=== PATIENT | male | born 1955 | race Caucasian/White ===

== ENCOUNTER 2022-08-14 18:17 | Inpatient (IN) | payer MEDICARE ==
[~2022-08-14] VITALS: Ht 172.7 cm; Wt 78.1 kg
[2022-08-14] MEDS ORDERED: INSULIN (19:15)
[2022-08-15 00:45] LABS: BASOPHILS % 0.9 % (0.0-2.0); EOSINOPHILS % 2.2 % (0.0-5.0); HEMATOCRIT. 42.2 % (42.0-52.0); HEMOGLOBIN. 14.6 g/dL (14.0-18.0); LYMPHOCYTES % 32.4 % (20.0-50.0); MEAN CORPUSCULAR HEMOGLOBIN 32.6 pg (28.0-32.0); MEAN CORPUSCULAR VOLUME 94.1 fL (80.0-94.0); MONOCYTES % 6.5 % (2.0-8.0); PLATELET 215 x1000/uL (130-400); RED BLOOD CELL COUNT 4.49 mill/uL (4.7-6.1); RED CELL DISTRIBUTION WIDTH 13.5 % (11.6-14.6)
[2022-08-15 01:51] LABS: CHLORIDE 106 mEq/L (98-107)
[2022-08-15] MEDS ORDERED: INSU10VI2 SUBCUT (05:57)
[2022-08-15] MEDS ORDERED: DEXTROSE 50% WATER 50ML SYRINGE IV PRN (06:15)
[2022-08-15 06:19] VITALS: BP 170/62
[2022-08-15] MEDS: BLOOD SUGAR DIAGNOSTIC STRIP TEST SCH ×4 (06:52→20:36)
[2022-08-15] MEDS ORDERED: DEXT 5% WATER + KCL 20MEQ/L 1,000 ML IV SCH ×2 (07:30→15:00)
[2022-08-15] MEDS: INSULIN LISPRO 100 UNITS/ML SUBCUT SCH ×4 (07:40→20:44)
[2022-08-15 08:00] VITALS: BP 141/61
[2022-08-15] MEDS: HEPARIN 5000 UNITS/ML VIAL SUBCUT SCH ×2 (09:27→20:43)
[2022-08-15 11:49] LABS: EOSINOPHILS % 1.4 % (0.0-5.0); HEMATOCRIT. 42.3 % (42.0-52.0); HEMOGLOBIN. 14.4 g/dL (14.0-18.0); LYMPHOCYTES % 23.2 % (20.0-50.0); MEAN CORPUSCULAR HEMOGLOBIN 32.1 pg (28.0-32.0); MEAN CORPUSCULAR VOLUME 94.5 fL (80.0-94.0); MEAN PLATELET VOLUME 8.1 fl (7.4-10.4); NEUTROPHILS % 68.4 % (40.0-76.0); PLATELET 215 x1000/uL (130-400); RED BLOOD CELL COUNT 4.47 mill/uL (4.7-6.1); RED CELL DISTRIBUTION WIDTH 13.7 % (11.6-14.6)
[2022-08-15 12:00] VITALS: BP 123/57
[2022-08-15 12:06] LABS: CHLORIDE 106 mEq/L (98-107)
[2022-08-15 16:00] VITALS: BP 121/55
[2022-08-15 20:00] VITALS: BP 141/64
[2022-08-15] MEDS: AMLODIPINE 2.5MG TABLET PO SCH (20:43)
[2022-08-16] VITALS: BP 116/62
[2022-08-16 04:00] VITALS: BP 116/49
[2022-08-16] MEDS: BLOOD SUGAR DIAGNOSTIC STRIP TEST SCH ×3 (06:35→17:37)
[2022-08-16] MEDS: INSULIN LISPRO 100 UNITS/ML SUBCUT SCH ×3 (06:39→17:42)
[2022-08-16 08:00] VITALS: BP 126/46
[2022-08-16] MEDS: HEPARIN 5000 UNITS/ML VIAL SUBCUT SCH (08:41)
[2022-08-16] MEDS: AMLODIPINE 2.5MG TABLET PO SCH (08:42)
[2022-08-16 12:00] VITALS: BP 141/64
[2022-08-16 16:00] VITALS: BP 143/59
[2022-08-16 17:49] VITALS: BP 143/59
== END 2022-08-16 18:40 | disposition home or self-care (01) | DRG 310 ==
LOC: ER 18:17 → MICUSO 08-15 02:14 → EDBEDREQTM 08-15 02:19 → EDBEDREQ 08-15 02:19 → 8WST 08-15 05:18
PROVIDERS: ADMIT Internal Medicine; ATTEND Internal Medicine
DX: I44.0 Atrioventricular block, first degree (principal); Z20.822 Contact with and (suspected) exposure to COVID-19; E78.00 Pure hypercholesterolemia, unspecified; E11.9 Type 2 diabetes mellitus without complications; I10 Essential (primary) hypertension; R00.1 Bradycardia, unspecified; R42 Dizziness and giddiness; Z95.0 Presence of cardiac pacemaker
CPT/HCPCS: 36415; 71045; 80048; 80053; 82962; 83036; 83880; 84443; 84484; 85025; 87426; 93005; 93306; 99285; C9803; J1644; J1815; J7060

== ENCOUNTER 2022-09-09 10:21 | Inpatient (IN) | payer MEDICARE ==
[~2022-09-09] VITALS: Ht 175.3 cm; Wt 78.0 kg
[~2022-09-09 10:21] MED LIST: INSU10VI2 SUBCUT; INSULIN
[2022-09-09 11:43] LABS: BASOPHILS % 0.9 % (0.0-2.0); EOSINOPHILS % 1.6 % (0.0-5.0); HEMOGLOBIN. 14.6 g/dL (14.0-18.0); LYMPHOCYTES % 22.6 % (20.0-50.0); MEAN CORPUSCULAR HEMOGLOBIN 32.5 pg (28.0-32.0); MEAN CORPUSCULAR VOLUME 93.7 fL (80.0-94.0); MEAN PLATELET VOLUME 8.1 fl (7.4-10.4); MONOCYTES % 6.3 % (2.0-8.0); NEUTROPHILS % 68.6 % (40.0-76.0); PLATELET 234 x1000/uL (130-400); RED BLOOD CELL COUNT 4.48 mill/uL (4.7-6.1); RED CELL DISTRIBUTION WIDTH 13.7 % (11.6-14.6)
[2022-09-09 11:45] LABS: CLARITY URINE CLEAR (CLEAR); COLOR URINE YELLOW (YELLOW); KETONES URINE TRACE (NEGATIVE); LEUKOCYTE ESTERASE URINE NEGATIVE (NEGATIVE); NITRITE URINE NEGATIVE (NEGATIVE); OCCULT BLOOD URINE NEGATIVE (NEGATIVE); PH URINE 5.5 (4.5-8.0); PROTEIN URINE NEGATIVE (NEGATIVE); SPECIFIC GRAVITY URINE 1.034 (1.005-1.030)
[2022-09-09 11:52] LABS: CHLORIDE 104 mEq/L (98-107)
[2022-09-09 12:34] LABS: ETHANOL BLOOD < 10 mg/dL
[2022-09-09 12:54] LABS: *AMPHETAMINES SCREEN URINE NEGATIVE (NEGATIVE); *BARBITURATES SCREEN URINE NEGATIVE (NEGATIVE); *BENZODIAZEPINES SCREEN URINE NEGATIVE (NEGATIVE); *COCAINE SCREEN URINE NEGATIVE (NEGATIVE); CANNABINOID URINE SCREEN NEGATIVE (NEGATIVE); METHADONE URINE SCREEN NEGATIVE (NEGATIVE); OPIATES URINE SCREEN NEGATIVE (NEGATIVE); PHENCYCLIDINE URINE SCREEN NEGATIVE (NEGATIVE)
[2022-09-09] MEDS ORDERED: LISI2.5T47 PO (14:09)
[2022-09-09] MEDS ORDERED: ONDANSETRON HCL 4MG/2ML INJ IV PRN (14:15)
[2022-09-09] MEDS ORDERED: DOPAMINE 400MG/250ML PREMIX 250 ML IV PRN (14:15)
[2022-09-09] MEDS ORDERED: ACETAMINOPHEN 325MG TABLET PO PRN (14:15)
[2022-09-09 15:25] VITALS: BP 141/88
[2022-09-09 15:54] VITALS: BP 141/77
[2022-09-09] MEDS ORDERED: DEXTROSE 50% WATER 50ML SYRINGE IV PRN (17:15)
[2022-09-09] MEDS: INSULIN LISPRO 100 UNITS/ML SUBCUT SCH ×2 (17:20→20:06)
[2022-09-09 18:04] VITALS: BP 123/81
[2022-09-09 20:00] VITALS: BP 149/69
[2022-09-09] MEDS: BLOOD SUGAR DIAGNOSTIC STRIP TEST SCH (20:05)
[2022-09-09 22:00] VITALS: BP 110/36
[2022-09-10] VITALS (13 sets, daily range): BP systolic 120–149; BP diastolic 34–86
[2022-09-10 01:55] LABS: CREATINE KINASE MB FRACTION 2.4 ng/mL (0.5-3.6)
[2022-09-10] MEDS: BLOOD SUGAR DIAGNOSTIC STRIP TEST SCH ×4 (06:14→20:41)
[2022-09-10] MEDS: INSULIN LISPRO 100 UNITS/ML SUBCUT SCH ×4 (07:20→20:54)
[2022-09-10 08:15] LABS: BASOPHILS % 1.3 % (0.0-2.0); HEMATOCRIT. 39.9 % (42.0-52.0); MEAN CORPUSCULAR HEMOGLOBIN 32.6 pg (28.0-32.0); MEAN CORPUSCULAR VOLUME 93.1 fL (80.0-94.0); MEAN PLATELET VOLUME 8.5 fl (7.4-10.4); MONOCYTES % 6.7 % (2.0-8.0); PLATELET 225 x1000/uL (130-400); RED BLOOD CELL COUNT 4.28 mill/uL (4.7-6.1); RED CELL DISTRIBUTION WIDTH 13.5 % (11.6-14.6)
[2022-09-10 09:50] LABS: CREATINE KINASE MB FRACTION 2.4 ng/mL (0.5-3.6)
[2022-09-10 11:00] LABS: CHLORIDE 104 mEq/L (98-107)
[2022-09-11] VITALS (11 sets, daily range): BP systolic 102–138; BP diastolic 46–75
[2022-09-11] MEDS: BLOOD SUGAR DIAGNOSTIC STRIP TEST SCH ×4 (06:28→21:36)
[2022-09-11] MEDS: INSULIN LISPRO 100 UNITS/ML SUBCUT SCH ×4 (07:20→21:52)
[2022-09-11] MEDS ORDERED: GENTAMICIN SULF 40MG/ML 2ML VIAL ONE (07:29)
[2022-09-11] MEDS ORDERED: IODIXANOL 320MG/ML 100 ML BOTTLE IV ONE (07:30)
[2022-09-11] MEDS ORDERED: LIDOCAINE HCL 1% 50ML VIAL (10MG/ML) ONE ×2 (07:59→08:07)
[2022-09-11] MEDS ORDERED: CEFAZOLIN SODIUM 1000MG/VIAL ONE (07:59)
[2022-09-11] MEDS ORDERED: PROPOFOL 200MG/20ML VIAL IV ONE (08:00)
[2022-09-11] MEDS ORDERED: MIDAZOLAM HCL 2 MG/2 ML VIAL ONE (08:01)
[2022-09-11] MEDS ORDERED: FENTANYL CITRATE/PF 50MCG/ML 2ML VIAL ONE (08:20)
[2022-09-11] MEDS ORDERED: HYDROCODONE/ACETAMINOPHEN 5/325MG TABLET PO PRN (11:00)
[2022-09-11] MEDS ORDERED: NALOXONE HCL 0.4MG/ML VIAL IV PRN (11:30)
[2022-09-11] MEDS: CEFAZOLIN 1000MG PREMIX 50 ML IV SCH (16:44)
[2022-09-12] VITALS (8 sets, daily range): BP systolic 112–154; BP diastolic 59–87
[2022-09-12] MEDS: CEFAZOLIN 1000MG PREMIX 50 ML IV SCH (01:08)
[2022-09-12] MEDS: BLOOD SUGAR DIAGNOSTIC STRIP TEST SCH ×2 (05:49→11:40)
[2022-09-12 06:47] LABS: BASOPHILS % 0.4 % (0.0-2.0); HEMATOCRIT. 40.9 % (42.0-52.0); HEMOGLOBIN. 14.3 g/dL (14.0-18.0); LYMPHOCYTES % 15.6 % (20.0-50.0); MEAN CORPUSCULAR HEMOGLOBIN 32.7 pg (28.0-32.0); MEAN CORPUSCULAR VOLUME 93.5 fL (80.0-94.0); MEAN PLATELET VOLUME 8.5 fl (7.4-10.4); MONOCYTES % 7.6 % (2.0-8.0); NEUTROPHILS % 76.4 % (40.0-76.0); PLATELET 216 x1000/uL (130-400); RED BLOOD CELL COUNT 4.38 mill/uL (4.7-6.1); RED CELL DISTRIBUTION WIDTH 13.5 % (11.6-14.6)
[2022-09-12 06:54] LABS: CHLORIDE 105 mEq/L (98-107)
[2022-09-12] MEDS: INSULIN LISPRO 100 UNITS/ML SUBCUT SCH ×2 (07:20→13:19)
[2022-09-12] MEDS ORDERED: INSULIN GLARGINE 100 UNITS/ML SUBCUT NR (08:45)
== END 2022-09-12 16:30 | disposition home or self-care (01) | DRG 243 ==
LOC: ER 10:21 → 3WST 12:12 → EDBEDREQTM 12:18 → EDBEDREQSVC 12:18 → EDBEDREQ 12:18 → ENRESERV 12:44
PROVIDERS: ADMIT Internal Medicine; ATTEND Internal Medicine
PROC: 0JH606Z Insertion of Pacemaker, Dual Chamber into Chest Subcutaneous Tissue and Fascia, Open Approach (ICD-10-PCS; principal; 2022-09-11)
PROC: 02H63JZ Insertion of Pacemaker Lead into Right Atrium, Percutaneous Approach (ICD-10-PCS; 2022-09-11)
PROC: 02HK3JZ Insertion of Pacemaker Lead into Right Ventricle, Percutaneous Approach (ICD-10-PCS; 2022-09-11)
PROC: B5161ZZ Fluoroscopy of Right Subclavian Vein using Low Osmolar Contrast (ICD-10-PCS; 2022-09-11)
DX: I49.5 Sick sinus syndrome (principal); I44.2 Atrioventricular block, complete; I25.10 Atherosclerotic heart disease of native coronary artery without angina pectoris; E11.9 Type 2 diabetes mellitus without complications; E78.5 Hyperlipidemia, unspecified; I10 Essential (primary) hypertension; E78.00 Pure hypercholesterolemia, unspecified; Z20.822 Contact with and (suspected) exposure to COVID-19; Z90.49 Acquired absence of other specified parts of digestive tract
CPT/HCPCS: 33208; 36415; 71045; 75820; 80048; 80053; 80061; 80305; 80320; 81003; 82550; 82553; 82962; 83036; 83735; 83880; 84484; 85025; 87426; 93005; 93306; 93970; 99285; A4565; C1785; C1893; C1898; C9803; J0690; J1580; J1815; J2250; J2704; J3010; J3490; Q9967; G0480